=== PATIENT | female | born 1995 | race Caucasian/White ===

== ENCOUNTER 2023-04-20 14:24 | Emergency (ER) | payer BC, SELFPAY ==
[2023-04-20 14:33] VITALS: BP 133/66; PULSE 105; RESP 20; TEMP 36.7; O2SAT 100
--- NOTE | 2023-04-20 14:58 | ED.URI ---
HPI - URI/Sore Throat General Chief Complaint: Upper Respiratory Infection Stated Complaint: Sinus Infection, Earache, Sore Throat Time Seen by Provider: 04/20/23 15:00 Source: patient, RN notes reviewed and old records reviewed Mode of arrival: ambulatory Limitations: no limitations History of Present Illness HPI Narrative: 27 year old female presents to [facility] care with complaints of sore throat since Tuesday morning and has been taking Ibuprofen for her discomfort. Patient reports yesterday she had hot and cold chills, headache and body aches and today both of her ears feel irritated. Patient reports no known fevers, denies any sinus congestion or drainage, denies any nausea, vomiting or diarrhea or any cough, MD elicited complaint: sore throat Onset (ago): day(s) (3) Pain scale (0-10): 6 Treatments prior to arrival: ibuprofen Related Data Allergies Allergy/AdvReac Type Severity Reaction Status Date / Time No Known Allergies Allergy Mild Verified 04/20/23 14:27 Review of Systems Review of Systems: CONSTITUTIONAL: Reports malaise, chills, sweats, unknown if fever. EYES: Denies visual changes, redness, or discharge. ENT: Reports no rhinorrhea, congestion, sinus pain, positive for otalgia and sore throat. CARDIOVASCULAR: Denies chest pain, palpitations, or edema. RESPIRATORY: Reports cough.? Denies dyspnea. GASTROINTESTINAL: Denies abdominal pain, nausea, vomiting, diarrhea SKIN: Denies rash or itching. MUSCULOSKELETAL: Reports myalgia. NEUROLOGIC:Reports headache. All systems reviewed & are unremarkable except as noted in HPI and below PMFSH Past Medical History Medical History (Updated 04/21/23 @ 08:23 by Meme James NP) Anemia Depression Surgical History Surgical History (Updated 04/21/23 @ 08:23 by Meme James NP) [place] teeth extracted Social History Social History (Updated 04/21/23 @ 08:25 by Meme James NP) Smoking status: Never smoker Living arrangements: with family Gender identity (if verbalized by the patient): Female Comments At time of signature, agree with nursing past medical, surgical, social and family history. There is no relevant family history pertinent to the presenting complaint Exam Narrative: GENERAL: Well-appearing, well-nourished, and in no acute distress. HEAD: Normocephalic EYES: PERRLA, conjunctivae clear ENT: Nares clear, turbinates edematous and erythematous, clear discharge. Mucous membranes moist. TM pearly finley with dull light reflex bilaterally; no tragal tenderness. Oropharynx erythematous without lesions. Tonsils red enlarged and with exudates, no drooling, no hoarseness, no trismus, uvula midline. NECK: Supple. lymphadenopathy CHEST: Clear to auscultation, breath sounds equal. No wheezing, rhonchi, rales, or stridor. No respiratory distress, speaks in full sentences.no cough noted,SAO2 100% on room air HEART: Regular rate and rhythm. No murmur heard. SKIN: Warm, dry, no rash. NEURO: Alert and oriented x3. PSYCH: Normal mood and affect Course Course Emergency Course: Patient is aware of diagnosis, understands and agrees to treatment plan.? Anticipatory guidance given.? Patient agrees to follow-up as directed and is aware of reasons to seek care at the emergency department. Portions of this record may have been created with voice recognition software Level of Care: Express Care Visit Vital Signs Vital signs: Vital Signs Temperature 36.7 C 04/20/23 14:33 Pulse Rate 105 H 04/20/23 14:33 Respiratory Rate 04/20/23 14:33 Blood Pressure 133/66 04/20/23 14:33 Pulse Oximetry 100 04/20/23 14:33 Oxygen Delivery Room Air 04/20/23 14:33 Temperature 36.7 C 04/20/23 14:33 Pulse Rate 105 H 04/20/23 14:33 Respiratory Rate 04/20/23 14:33 Blood Pressure 133/66 04/20/23 14:33 Pulse Oximetry 100 04/20/23 14:33 Oxygen Delivery Room Air 04/20/23 14:33 Reviewe
== END 2023-04-20 15:16 | disposition home or self-care (01) ==
PROVIDERS: Emergency Provider Registered Nurse
DX: J03.90 Acute tonsillitis, unspecified (principal); Z20.822 Contact with and (suspected) exposure to COVID-19
CPT/HCPCS: 87081; 87426; 87804; 87880; 99213; G0463